=== PATIENT | female | born 1965 | race Caucasian/White ===

== ENCOUNTER 2016-08-29 08:00 | Inpatient (IN) | payer BC ==
[~2016-08-29] VITALS: Ht 157.5 cm; Wt 83.2 kg
[2016-09-18] MEDS ORDERED: MORP1TAB25 PO (13:31)
[2016-09-18] MEDS ORDERED: FISH1000 PO (13:31)
[2016-09-18] MEDS ORDERED: ASPI325T PO (13:31)
[2016-09-18] MEDS ORDERED: ATOR1TAB18 PO (13:31)
[2016-09-18] MEDS ORDERED: MULTTAB67 PO (13:31)
[2016-09-18] MEDS ORDERED: LISI-519 PO (13:31)
[2016-09-18] MEDS ORDERED: GABA600T PO (13:31)
[2016-09-18] MEDS ORDERED: CYMB60CA PO (13:31)
[2016-09-18] MEDS ORDERED: TRAM50TA PO (13:48)
[2016-09-18] MEDS ORDERED: OXYC-259 PO (13:48)
[2016-09-18] MEDS ORDERED: OXYC-395 PO (13:48)
[2016-09-24] MEDS ORDERED: METOPROLOL TARTRATE 25 MG TAB PO PRN (07:00)
[2016-09-24] MEDS: SODIUM CHLOR 0.9% 1000 ML INJ 1,000 ML IV SCH (07:00)
[2016-09-24] MEDS: SODIUM CHLORID 0.9% 500 ML IV SCH ×2 (07:00→23:40)
[2016-09-24] MEDS ORDERED: INSULIN HUMAN REGULAR 1,000 UNITS/10 ML VIAL SQ PRN (07:00)
[2016-09-24] MEDS ORDERED: VANCOMYCIN HCL 1000 MG ON-CALL/NS 250 ML IV SCH ×2 (07:00)
[2016-09-24] MEDS: LACTATED RINGER'S 1000 ML IV SCH ×2 (07:30→22:31)
[2016-09-24 07:38] VITALS: BP 118/71; PULSE 89; RESP 18; TEMP 98.7; O2SAT 95
[2016-09-24] MEDS ORDERED: THROMBIN (TOPICAL) 5,000 UNIT VIAL ONE (07:39)
[2016-09-24] MEDS ORDERED: GELFOAM SIZE 100 ONE (07:40)
[2016-09-24] MEDS ORDERED: HYDROmorphone HCL PF 2 MG/ML VIAL ONE (08:01)
[2016-09-24] MEDS ORDERED: DICLOFENAC SODIUM 37.5 MG/ML VIAL IV PUSH ONE (08:01)
[2016-09-24] MEDS ORDERED: ACETAMINOPHEN 1000 MG/100 ML VIAL IV ONE (08:01)
[2016-09-24] MEDS ORDERED: SUGAMMADEX SODIUM 200 MG/2 ML VIAL IV PUSH ONE ×2 (08:02)
[2016-09-24] MEDS ORDERED: FAMOTIDINE 20 MG/2 ML VIAL ONE (08:18)
--- NOTE | 2016-09-24 08:30 | MH ---
cc: ARTURO ALBERTO MD, ROHIT K. M.D. DR. BENEZETTE DATE OF ADMISSION 09/24/2016 ADMISSION DIAGNOSIS L5-S1 spondylolisthesis and severe degenerative disk disease. HISTORY OF PRESENT ILLNESS This is a 51-year-old female who underwent a right L5 / S1 transforaminal interbody fusion with cage and pedicle screw placement on 09/14/2014. She presented for her follow-ups and complained of low back pain radiating into both of her hips. She denies any pain radiating into her legs. She states her knees hurt and has arthritis in them. She has neuropathy from her knees down to her toes. She states that after her fusion she is not taking any nonsteroidal anti-inflammatory medications and she stated that she has stopped smoking several years ago up. Lumbar x-rays from April 22, 2016 reveals the right L5 pedicle screw lateral to the vertebral body with a grade 2 L5-S1 spondylolisthesis and slight L4-L5 spondylolisthesis also. PAST MEDICAL HISTORY Significant for: 1. Hypertension. 2. Coronary artery disease status post stent placement in November 2003. 3. Cholecystectomy October 2003. 4. Peripheral neuropathy. MEDICATIONS current medications: 1. She is taking aspirin 325 milligrams daily. This was placed on hold one week prior to surgical intervention. 2. Lisinopril 2.5 mg daily. 3. Gabapentin 1200 milligrams three times a day. 4. Duloxetine 60 mg b.i.d. 5. Atorvastatin 80 milligrams daily. 6. OxyContin 10 mg q.6 h. 7. Morphine 30 mg three times a day. 8. Tramadol 50 mg one to two tablets q.6h p.r.n. breakthrough pain. 9. Fish oil three times a day. This was placed on hold one week prior to surgical intervention. 10. Multivitamin daily. ALLERGIES TO MEDICATIONS SHE IS ALLERGIC TO IBUPROFEN AND STEROIDS. FAMILY HISTORY Her mother is at 73 years old, had cancer. Father is at 68 years old, had cancer. Brother is alive at 55 years old and well. She has another brother who is at 37 years old of myocardial infarction. SOCIAL HISTORY She is . She has children. She does not smoke and quit smoking and 2005. She does not drink alcohol. REVIEW OF SYSTEMS CONSTITUTIONAL: She denies any fever or chills. EARS, NOSE, AND THROAT: No pharyngitis or exudate or bloody drainage from her nose. CARDIOVASCULAR: She denies any chest pain, palpitations. RESPIRATORY: No cough or shortness of breath. GENITOURINARY: No dysuria or hematuria. MUSCULOSKELETAL: Positive for low back pain. SKIN: No rashes or pruritus. NEUROLOGICAL: No difficulty with speech or memory. GASTROINTESTINAL: No nausea or vomiting, abdominal pain. PSYCHIATRIC: Positive for anxiety. No depression symptoms. ENDOCRINE: No polyuria or polydipsia. HEMATOLOGIC: No bruising or bleeding tendencies. PHYSICAL EXAMINATION HEAD: Normocephalic, atraumatic. NECK: Supple. No carotid bruits heard on auscultation. LUNGS: Clear to auscultation bilaterally. HEART: Regular rate and rhythm. Normal S1-S2. ABDOMEN: Soft and nontender. Positive bowel sounds. She is obese. SKIN: No cyanosis or erythema. She has a well healed lumbar incision. MUSCULOSKELETAL: She has giveaway strength distally, otherwise she is 5/5 in the lower extremities. NEUROLOGICAL: She is awake, alert and oriented. Cranial nerves II through XII are grossly intact. Speech is fluent. Comprehension is good. Sensation is decreased in the feet and below her knees. Otherwise they are intact in the lower extremities. IMPRESSION A 50-year-old female with a high grade L5-S1 spondylolisthesis with severe degenerative disk disease and foraminal stenosis and intractable back pain and radiculopathy who underwent an L5-S1 transforaminal interbody fusion with pedicle screw fixation on September 2014. She also suffers from bilateral peripheral neuropathy. She has postoperative flexion/extension x-rays which do not reveal any instability, although more recent x-rays of the right L5 pedicle screw has pulled out of the vertebral body and is slightly lateral to the body with the S1 screw in place. There does appear to be increased progression of the spondylolisthesis, although the interbody cage is in position. PLAN We have recommended removal and reposition of the right L5 pedicle screw as well as placement of a left L5-S1 pedicle screws with a posterior lateral fusion to prevent further subluxation and provide more solid fusion. The patient has elected to hold off on surgery from our recommendation on May 24, 2016. She understands the risk of nerve injury, vascular injury as well as intra-abdominal, retroperitoneal content injury that could have occurred with further migration of the screw. We have discussed the procedure as well as the risks, benefits, alternatives and recovery time of the surgery involved with the patient who understands. No guarantees were made as to the results of the surgery. She understands this. The patient is electing to proceed and she was therefore scheduled accordingly. DICTATED BY: Mike Scott PA-C MD EDGARDO Rodriguez/JEANIE /3:55 PM /8:29 AM [facility]
[2016-09-24] MEDS: BUPIVACAINE/EPINEPHRINE 0.5% PF 30 ML VIAL ONE ×2 (09:32→11:23)
[2016-09-24] MEDS: VANCOMYCIN HCL 1000 MG VIAL ONE ×2 (10:05→11:26)
[2016-09-24] MEDS ORDERED: BUPIVACAINE/EPINEPHRINE 0.5% PF 30 ML VIAL ONE (11:22)
[2016-09-24] MEDS ORDERED: ONDANSETRON HCL 4 MG/2 ML VIAL IV PUSH ONE (12:00)
[2016-09-24] MEDS ORDERED: NEOSTIGMINE 3 MG/3 ML SYR IV ONE (12:00)
[2016-09-24] MEDS ORDERED: NORMOSOL R INJ 1,000 ML IV ONE (12:00)
[2016-09-24] MEDS ORDERED: PROPOFOL 200 MG/20 ML AMP IV ONE (12:00)
[2016-09-24] MEDS ORDERED: PHENYLEPH/NS 1000 MCG/10 ML SYR IV ONE (12:00)
[2016-09-24] MEDS ORDERED: POTASSIUM CHLOR 20 MEQ PREMIX 100 ML IV PRN (12:15)
[2016-09-24] MEDS ORDERED: cloNIDine HCL 0.1 MG TAB PO PRN (12:15)
[2016-09-24] MEDS ORDERED: MENTHOL LOZENGE SUCK-ON PRN (12:15)
[2016-09-24] MEDS ORDERED: oxyCODONE/ACETAMINOPHEN 10 MG/325 MG TAB PO PRN (12:15)
[2016-09-24] MEDS ORDERED: ONDANSETRON HCL 4 MG/2 ML VIAL IV PRN (12:15)
[2016-09-24] MEDS ORDERED: CALCIUM GLUCONATE INJ 1 GM in SODIUM CHLORIDE 0.9% INJ 100 ML IV PRN (12:15)
[2016-09-24] MEDS ORDERED: MAGNESIUM SULFATE INJ 2 GM in SODIUM CHLORIDE 0.9% INJ 100 ML IV PRN (12:15)
[2016-09-24] MEDS ORDERED: RESP: ALBUTEROL 2.5 MG/3 ML NEB (PRN) NEB (12:15)
[2016-09-24] MEDS ORDERED: ZOLPIDEM TARTRATE 5 MG TAB PO PRN (12:15)
[2016-09-24] MEDS ORDERED: MAGNESIUM HYDROXIDE SUSP 30 ML CUP PO PRN (12:15)
[2016-09-24] MEDS ORDERED: NALOXONE HCL 0.4 MG/ML AMP IV PRN (12:15)
[2016-09-24] MEDS ORDERED: BISACODYL 10 MG SUPP PR PRN (12:15)
[2016-09-24] MEDS ORDERED: diphenhydrAMINE HCL 25 MG CAP PO PRN (12:15)
[2016-09-24] MEDS ORDERED: ACETAMINOPHEN 325 MG TAB PO PRN (12:15)
[2016-09-24] MEDS ORDERED: ALUMINUM/MAGNESIUM/SIMETH 30 ML CUP PO PRN (12:15)
[2016-09-24] MEDS ORDERED: PROMETHAZINE INJ 25 MG/ML VIAL IM PRN (12:15)
[2016-09-24] MEDS ORDERED: SODIUM CHLORIDE 0.9% FLUSH 5 ML FLUSH IVF PRN (12:15)
--- NOTE | 2016-09-24 12:18 | PD.OP ---
Operative Report Date of Surgery: Sep 24, 2016 Preoperative Diagnosis: Severe L5-S1 degenerative disc disease with a grade 2 spondylolisthesis; L5-S1 pseudoarthrosis with instrumentation failure Postoperative Diagnosis: Same Procedure: L5-S1 posterolateral fusion with pedicle screw fixation; L5-S1 right foraminotomy with epidurolysis; exploration of the L5-S1 fusion with removal and replacement of right L5 pedicle screw; microsurgical technique Anesthesia: Gen. endotracheal by sarah Ordoñez M.D. Surgeon: Richard Garza M.D. After School Driver(s): Eden Pandya Operation and Findings: Following initiation of general endotracheal anesthesia, the patient had a Pierson catheter placed along with sequential compression devices. A gram of vancomycin was administered intravenously and she was turned in a prone position on a Rodriguez frame, on a Hossein table, and all pressure points adequately padded. The lumbosacral region was then prepped with Chloraprep and sterilely draped with Ioban along the usual sterile draping. A right paraspinal skin incision was then made at the previous L5-S1 incision site after infiltrating the skin with 0.5% Marcaine with epinephrine solution extending down through the fascia. The muscle fibers were split using avascular fatty plane and detached from the underlying facets, transverse process and lateral portion of lamina on the right side in the previous L5 and S1 pedicle screws were evident along with a connecting woo and a self-retaining retractor used for exposure. Intraoperative fluoroscopy was also used for level of confirmation along with microscope magnification for further dissection. The woo and the L5 pedicle screw also removed which had migrated laterally but the S1 pedicle screw was in solid position and intact. A new more medial transpedicular L5 trajectory was undertaken using AP and lateral fluoroscopy and the screw placed and connected to the S1 screw with a woo and locked in place. Right L5-S1 foraminotomy with epidural scar tissue lysis was also undertaken to decompress the nerve root completely. Although no gross instability was noted that there was increased the spondylolisthesis at the L5- S1 level and given the concern of a pseudoarthrosis I felt the best that a posterolateral bilateral fusion also be undertaken in addition the previous interbody fusion. Through the same incision the fascia overlying the right iliac crest was detached along with muscular attachments and cortical bone also resected with the Leksell and with the gouges cancellus bone harvested from the iliac crest. There was an irrigated and Gelfoam with thrombin used for hemostasis. The fascia was then approximated with 2-0 Vicryl sutures overlying the crest. Subsequently I made the left L5 and S1 paraspinal skin incision extending onto the fascia and the muscle fibers split the exposure of the junction of the L5 transverse process and facet as well as the sacral ala through a small incision. Pedicle screws are placed with AP and lateral fluoroscopy guidance and the screws locked in place with a woo and cap. The construct appeared very very secure at this point. The transverse processes bilaterally were decorticated and I packed the autograft bone along with the demineralized bone matrix for posterolateral fusion. Subsequently in order to facilitate the fusion and provide stabilization, pedicle screw fixation was undertaken using Willard spine screws on entry point at the right L4-5 levels at the junction of the transverse process and facet. The area was then copiously irrigated with Vancomycin solution and powder. The retractors were removed and the bipolar cautery used for hemostasis. The muscle fascia was then approximated using 2-0 Vicryl interrupted stitches and then 3-0 Vicryl subcuticular stitches also placed in interrupted fashion. The final skin closure was completed with Mastisol and Steri-Strips as both a paraspinal incision sites. Sterile dressings were then applied. The patient then turned in supine position, extubated and taken to recovery room. There were no intraoperative complications. All sponge and needle counts were correct at the end of procedure. Estimated blood loss about 30 ml. Richard Garza MD Sep 24, 2016 12:17
[2016-09-24] MEDS ORDERED: fentaNYL CITRATE 250 MCG/5 ML AMP ONE (12:28)
[2016-09-24] MEDS ORDERED: MIDAZOLAM HCL 2 MG/2 ML VIAL ONE (12:28)
[2016-09-24] MEDS ORDERED: NS + KCL 20 MEQ INJ 1,000 ML ONE (12:31)
[2016-09-24] MEDS: HYDROmorphone HCL PCA 6 MG/30 ML IV SCH ×2 (12:47→20:29)
[2016-09-24] MEDS: NS + KCL 20 MEQ INJ 1,000 ML IV SCH ×2 (12:50→22:30)
[2016-09-24] MEDS: GABAPENTIN 300 MG CAP PO SCH ×2 (13:00→17:55)
[2016-09-24] MEDS ORDERED: DO NOT ADM ANY ANTICOAGULANT DRUGS XX PRN (13:00)
[2016-09-24 13:02] LABS: AUTOMATED NEUTROPHIL # 7.8 TH/MM3 (1.8-7.7); BASOPHIL % 0.4 % (0.0-2.0); EOSINOPHIL # 0.3 TH/MM3 (0-0.4); HEMATOCRIT 35.9 % (35.0-46.0); HEMO FLAGS DIFF FINAL; LYMPH % 36.4 % (9.0-44.0); LYMPHOCYTE # 5.1 TH/MM3 (1.0-4.8); MEAN CELL VOLUME 86.9 FL (80.0-100.0); MEAN CORPUSCULAR HEMOGLOBIN 28.9 PG (27.0-34.0); MEAN CORPUSCULAR HGB CONC 33.2 % (32.0-36.0); MONO % 5.9 % (0.0-8.0); NEUT % 55.3 % (16.0-70.0); PLATELET COUNT 293 TH/MM3 (150-450); RED BLOOD COUNT 4.13 MIL/MM3 (4.00-5.30); RED CELL DISTRIBUTION WIDTH 13.9 % (11.6-17.2); WHITE BLOOD COUNT 14.1 TH/MM3 (4.0-11.0)
[2016-09-24 13:37] LABS: BICARBONATE 30.1 MEQ/L (21.0-32.0)
[2016-09-24 13:41] LABS: POTASSIUM 2.8 MEQ/L (3.5-5.1)
[2016-09-24] MEDS: MORPHINE SULFATE 30 MG CONTROLLED RELEASE TAB PO SCH ×2 (14:00→22:26)
[2016-09-24] MEDS: CYCLOBENZAPRINE HCL 10 MG TAB PO SCH ×2 (14:00→22:26)
--- NOTE | 2016-09-24 14:57 | RADRPT ---
EXAM DATE/TIME: 09/24/2016 08:47 [facility] COMPARISON: SPINE LUMBAR LTD (AP & LAT), September 13, 2014, 8:57. INDICATIONS : Revision of L5,S1 fusion. MEDICAL HISTORY : Back pain SURGICAL HISTORY : Fusion, lumbar. ENCOUNTER: Initial ACUITY: 1 day PAIN SCORE: Non-responsive. LOCATION: Lumbar spine. FINDINGS: AP and lateral coned-down views of the lower lumbar spine were obtained using a matrix camera intraop eratively and demonstrate that the patient is status post fusion at the L5-S1 level with bilateral pe dicle screws and posterior fixation rods. 2 metallic markers are noted in the interspace. There has b een an interval increase in the anterior spondylolisthesis which now measures approximately 1 cm. On the prior study this measured approximately several millimeters. There has been an interval increase in the disc space narrowing at this level. There is mild sclerosis. CONCLUSION: 1. Status post revision fusion at the L5-S1 level. 2. Interval increase in anterior spondylolisthesis. 3. Increased degenerative disc change with disc space narrowing. Dustin Maldonado MD on September 24, 2016 at 14:53 Board Certified Radiologist. This report was verified electronically.
[2016-09-24] MEDS ORDERED: POTASSIUM CHLORIDE 10 MEQ CONTROLLED RELEASE TAB PO ONE (15:00)
[2016-09-24 20:46] VITALS: BP 108/64; PULSE 86; RESP 20; TEMP 99.6; O2SAT 96
[2016-09-24] MEDS: SODIUM CHLORIDE 0.9% FLUSH 5 ML FLUSH IVF SCH (22:25)
[2016-09-24] MEDS: DOCUSATE SODIUM 100 MG CAP PO SCH (22:25)
[2016-09-24] MEDS: PCA - TOTAL MG DILAUDID DELIVERED PER SHIFT OTHER SCH (22:32)
[2016-09-24] MEDS: ATORVASTATIN 80 MG TAB PO SCH (23:01)
[2016-09-25] VITALS (9 sets, daily range): BP systolic 90–120; BP diastolic 51–62; PULSE 65–110; RESP 17–20; TEMP 95.7–101.1; O2SAT 88–100
[2016-09-25] MEDS: MORPHINE SULFATE 30 MG CONTROLLED RELEASE TAB PO SCH (05:20)
[2016-09-25] MEDS: CYCLOBENZAPRINE HCL 10 MG TAB PO SCH (05:20)
[2016-09-25] MEDS: PCA - TOTAL MG DILAUDID DELIVERED PER SHIFT OTHER SCH ×3 (05:21→22:00)
[2016-09-25] MEDS: SODIUM CHLOR 0.9% 1000 ML INJ 1,000 ML IV SCH (07:00)
[2016-09-25] MEDS: NS + KCL 20 MEQ INJ 1,000 ML IV SCH (08:11)
[2016-09-25 08:46] LABS: BICARBONATE 29.8 MEQ/L (21.0-32.0); POTASSIUM 3.4 MEQ/L (3.5-5.1)
[2016-09-25] MEDS: SODIUM CHLORIDE 0.9% FLUSH 5 ML FLUSH IVF SCH (09:00)
[2016-09-25] MEDS: LISINOPRIL 5 MG TAB PO SCH (09:25)
[2016-09-25] MEDS: ASPIRIN 325 MG TAB PO SCH (09:25)
[2016-09-25] MEDS: DOCUSATE SODIUM 100 MG CAP PO SCH (09:25)
[2016-09-25] MEDS: GABAPENTIN 300 MG CAP PO SCH ×3 (09:25→17:57)
[2016-09-25] MEDS: MULTIVITAMIN TAB PO SCH (09:26)
[2016-09-25] MEDS: PANTOPRAZOLE SOD 40 MG DELAYED RELEASE TAB PO SCH (09:26)
[2016-09-25] MEDS: DULoxetine HCl DR 60 MG CAP PO SCH (09:26)
--- NOTE | 2016-09-25 10:04 | HHI.NSPN ---
(Mike Scott) History Chief Complaint: Incisional pain. (Mike Scott) Interval History 09/25/16: Pt underwent a L5/S1 posterolateral fusion with pedicle screw fixation ; L5/S1 right foraminotomy with epidural scar tissue lysis,exploration of the L5 /S1 fusion with removal and placement of right L5 pedicle screw on 09/24/16. She complains of incisional back pain. She states the pain radiating into her LEs is improved. She is ambulating to the bathroom. (Mike Scott) Review of Systems General: Negative for: fever, chills, insomnia Respiratory: Negative for: shortness of breath, cough, sputum Cardiovascular: Negative for: chest pain Gastrointestinal: Negative for: nausea, vomitting, diarrhea, constipation ( Mike Scott) Exam Results Vital Signs Date Time Temp Pulse Resp B/P Pulse Ox O2 Delivery O2 Flow Rate FiO2 09/25/16 08:00 99.7 100 18 90/51 90 09/24/16 19:30 Nasal Cannula 2 Intake and Output 09/24/16 09/24/16 09/25/16 08:00 16:00 00:00 Intake Total 1100 ml 50 ml Output Total 430 ml 700 ml Balance 670 ml -650 ml (Mike Scott) Physical Examination Resp: CTA bilaterally Heart: NSR no murmurs Abd: Soft positive bs Skin: Bandage changed by RN this morning Muscle: Moves LEs with good strength. Ambulates to bathroom with brace. Neuro: Pt awake and alert. Follows commands well. Speech clear. (Mike Scott) Lab, Micro, Other Results Laboratory Tests Test 09/24/16 09/25/16 12:44 07:32 White Blood Count 14.1 TH/MM3 Red Blood Count 4.13 MIL/MM3 Hemoglobin 11.9 GM/DL Hematocrit 35.9 % Mean Corpuscular Volume 86.9 FL Mean Corpuscular Hemoglobin 28.9 PG Mean Corpuscular Hemoglobin 33.2 % Concent Red Cell Distribution Width 13.9 % Platelet Count 293 TH/MM3 Mean Platelet Volume 8.4 FL Neutrophils (%) (Auto) 55.3 % Lymphocytes (%) (Auto) 36.4 % Monocytes (%) (Auto) 5.9 % Eosinophils (%) (Auto) 2.0 % Basophils (%) (Auto) 0.4 % Neutrophils # (Auto) 7.8 TH/MM3 Lymphocytes # (Auto) 5.1 TH/MM3 Monocytes # (Auto) 0.8 TH/MM3 Eosinophils # (Auto) 0.3 TH/MM3 Basophils # (Auto) 0.0 TH/MM3 CBC Comment DIFF FINAL Differential Comment Sodium Level 138 MEQ/L 139 MEQ/L Potassium Level 2.8 MEQ/L 3.4 MEQ/L Chloride Level 102 MEQ/L 103 MEQ/L Carbon Dioxide Level 30.1 MEQ/L 29.8 MEQ/L Anion Gap 6 MEQ/L 6 MEQ/L Blood Urea Nitrogen 4 MG/DL 2 MG/DL Creatinine 0.64 MG/DL 0.61 MG/DL Estimat Glomerular Filtration 98 ML/MIN 104 ML/MIN Rate Random Glucose 130 MG/DL 106 MG/DL Calcium Level 8.2 MG/DL 7.8 MG/DL 09/24/16 09/24/16 09/25/16 15:00 23:00 07:00 Intake Total 1000 ml 150 ml 840 ml Output Total 430 ml 700 ml 500 ml Balance 570 ml -550 ml 340 ml Intake Oral 150 ml 840 ml Other 1000 ml Output Urine Total 200 ml 700 ml 500 ml Estimated Blood Loss 30 ml Other 200 ml # Bowel Movements 0 0 (Mike Scott) Medical Decision Making Impression and Plan A: 51 y/o FM s/p L5/S1 posterolateral fusion with pedicle screw fixation; L5/ S1 right foraminotomy with epidural lysis, exploration of the L5/S1 fusion with removal and placement of right pedicle screw. P: Continue with pain control. Continue with PT Continue to monitor. (Mike Scott) Attending Statement The exam, history, and the medical decision-making described in the above note were completed with the assistance of the mid-level provider. I reviewed and agree with the findings presented. I attest that I had a [id number] encounter with the patient on the same day, and personally performed and documented my assessment and findings in the medical record. Appears to be sedated but arouses easily. We will decrease pain medications and muscle relaxers and adjust medications dependent on her pain level. (Richard Garza MD) Mike Scott Sep 25, 2016 10:04 Richard Garza MD Sep 25, 2016 19:00
[2016-09-25] MEDS ORDERED: POTASSIUM CHLORIDE 10 MEQ CONTROLLED RELEASE TAB PO ONE (11:15)
[2016-09-25] MEDS ORDERED: CYCLOBENZAPRINE HCL 10 MG TAB PO PRN (12:00)
[2016-09-25] MEDS: HYDROmorphone HCL PCA 6 MG/30 ML IV SCH (16:25)
[2016-09-26] VITALS (7 sets, daily range): BP systolic 103–114; BP diastolic 52–69; PULSE 62–101; RESP 16–21; TEMP 96.7–100.1; O2SAT 90–99
[2016-09-26] MEDS: NS + KCL 20 MEQ INJ 1,000 ML IV SCH ×2 (00:27→04:11)
[2016-09-26] MEDS: SODIUM CHLORIDE 0.9% FLUSH 5 ML FLUSH IVF SCH ×4 (00:27→22:10)
[2016-09-26] MEDS: DOCUSATE SODIUM 100 MG CAP PO SCH ×3 (00:28→22:07)
[2016-09-26] MEDS: ATORVASTATIN 80 MG TAB PO SCH ×2 (00:29→22:07)
[2016-09-26] MEDS: POTASSIUM CHLORIDE 10 MEQ CONTROLLED RELEASE TAB PO SCH ×2 (00:29→08:27)
[2016-09-26] MEDS: MORPHINE SULFATE 30 MG CONTROLLED RELEASE TAB PO SCH ×3 (00:31→22:08)
[2016-09-26] MEDS: HYDROmorphone HCL PCA 6 MG/30 ML IV SCH (00:49)
[2016-09-26] MEDS: LACTATED RINGER'S 1000 ML IV SCH (05:42)
[2016-09-26] MEDS: SODIUM CHLOR 0.9% 1000 ML INJ 1,000 ML IV SCH (05:42)
[2016-09-26] MEDS: PCA - TOTAL MG DILAUDID DELIVERED PER SHIFT OTHER SCH ×3 (06:00→22:00)
[2016-09-26] MEDS: ASPIRIN 325 MG TAB PO SCH (08:26)
[2016-09-26] MEDS: LISINOPRIL 5 MG TAB PO SCH (08:26)
[2016-09-26] MEDS: DULoxetine HCl DR 60 MG CAP PO SCH (08:26)
[2016-09-26] MEDS: MULTIVITAMIN TAB PO SCH (08:26)
[2016-09-26] MEDS: PANTOPRAZOLE SOD 40 MG DELAYED RELEASE TAB PO SCH (08:27)
[2016-09-26] MEDS: GABAPENTIN 300 MG CAP PO SCH ×3 (08:27→17:01)
[2016-09-26] MEDS ORDERED: HYDROmorphone HCL PF 1 MG/ML VIAL IV PUSH PRN (09:30)
--- NOTE | 2016-09-26 10:09 | HHI.NSPN ---
(Mike Scott) History Chief Complaint: Incisional pain. (Mike Scott) Interval History 09/25/16: Pt underwent a L5/S1 posterolateral fusion with pedicle screw fixation ; L5/S1 right foraminotomy with epidural scar tissue lysis,exploration of the L5 /S1 fusion with removal and placement of right L5 pedicle screw on 09/24/16. She complains of incisional back pain. She states the pain radiating into her LEs is improved. She is ambulating to the bathroom. 09/26/16: Pt awake a little confused. Complains of incisional pain. No radiculopathy in LEs. (Mike Scott) Review of Systems General: Negative for: fever, chills, insomnia Respiratory: Negative for: shortness of breath, cough, sputum Cardiovascular: Negative for: chest pain Gastrointestinal: Negative for: nausea, vomitting, diarrhea, constipation ( Mike Scott) Exam Results Vital Signs Date Time Temp Pulse Resp B/P Pulse Ox O2 Delivery O2 Flow Rate FiO2 09/26/16 10:00 94 Nasal Cannula 2.00 09/26/16 08:00 100.1 99 16 114/69 09/25/16 19:57 21 Intake and Output 09/25/16 09/25/16 09/26/16 08:00 16:00 00:00 Intake Total 840 ml 800 ml 600 ml Output Total 500 ml Balance 340 ml 800 ml 600 ml (Mike Scott) Physical Examination Resp: CTA bilaterally Heart: NSR no murmurs Abd: Soft positive bs Skin: Incision clean and dry. No signs of infection. Muscle: Moves LEs with good strength. Neuro: Pt awake and alert. Follows commands well. Speech clear. (Mike Scott) Lab, Micro, Other Results 09/25/16 09/25/16 09/26/16 15:00 23:00 07:00 Intake Total 800 ml 600 ml 951 ml Output Total 164 ml Balance 800 ml 600 ml 787 ml Intake Oral 800 ml 600 ml 480 ml IV Total 471 ml Output Urine Total 164 ml # Voids 4 5 1 # Bowel Movements 1 0 (Mike Scott) Medical Decision Making Impression and Plan A: 51 y/o FM s/p L5/S1 posterolateral fusion with pedicle screw fixation; L5/ S1 right foraminotomy with epidural lysis, exploration of the L5/S1 fusion with removal and placement of right pedicle screw. P: Continue with pain control. Continue with PT Continue to monitor. (Mike Scott) Attending Statement The exam, history, and the medical decision-making described in the above note were completed with the assistance of the mid-level provider. I reviewed and agree with the findings presented. I attest that I had a [id number] encounter with the patient on the same day, and personally performed and documented my assessment and findings in the medical record. (Richard Garza MD) Mike Scott Sep 26, 2016 10:09 Richard Garza MD Sep 26, 2016 18:02
[2016-09-26] MEDS: oxyCODONE/ACETAMINOPHEN 10 MG/325 MG TAB PO PRN ×2 (13:18→18:57)
[2016-09-27] VITALS: BP 108/56; PULSE 64; RESP 18; TEMP 96.8; O2SAT 96
[2016-09-27 04:00] VITALS: BP 110/66; PULSE 86; RESP 18; TEMP 97.4; O2SAT 93
[2016-09-27] MEDS: PCA - TOTAL MG DILAUDID DELIVERED PER SHIFT OTHER SCH (06:00)
[2016-09-27 08:00] VITALS: BP 108/64; PULSE 86; RESP 18; TEMP 97.1; O2SAT 93
[2016-09-27] MEDS: MULTIVITAMIN TAB PO SCH (08:30)
[2016-09-27] MEDS: MORPHINE SULFATE 30 MG CONTROLLED RELEASE TAB PO SCH (08:30)
[2016-09-27] MEDS: DOCUSATE SODIUM 100 MG CAP PO SCH (08:30)
[2016-09-27] MEDS: GABAPENTIN 300 MG CAP PO SCH (08:30)
[2016-09-27] MEDS: PANTOPRAZOLE SOD 40 MG DELAYED RELEASE TAB PO SCH (08:30)
[2016-09-27] MEDS: LISINOPRIL 5 MG TAB PO SCH (08:31)
[2016-09-27] MEDS: ASPIRIN 325 MG TAB PO SCH (08:31)
[2016-09-27] MEDS: DULoxetine HCl DR 60 MG CAP PO SCH (08:31)
[2016-09-27] MEDS ORDERED: OXYC-395 PO (08:43)
[2016-09-27] MEDS ORDERED: CYCL1TAB29 PO (08:43)
[2016-09-27] MEDS: oxyCODONE/ACETAMINOPHEN 10 MG/325 MG TAB PO PRN (08:44)
--- NOTE | 2016-09-27 11:31 | HHI.NSPN ---
History Chief Complaint: Incisional pain. Interval History 09/25/16: Pt underwent a L5/S1 posterolateral fusion with pedicle screw fixation ; L5/S1 right foraminotomy with epidural scar tissue lysis,exploration of the L5 /S1 fusion with removal and placement of right L5 pedicle screw on 09/24/16. She complains of incisional back pain. She states the pain radiating into her LEs is improved. She is ambulating to the bathroom. 09/26/16: Pt awake a little confused. Complains of incisional pain. No radiculopathy in LEs. 09/27/16: Pt awake and more alert today. States pain controlled with her pain medication. No radiculopathy in LEs. No paresthesias in LEs. Review of Systems General: Negative for: fever, chills, insomnia Respiratory: Negative for: shortness of breath, cough, sputum Cardiovascular: Negative for: chest pain Gastrointestinal: Negative for: nausea, vomitting, diarrhea, constipation Exam Results Vital Signs Date Time Temp Pulse Resp B/P Pulse Ox O2 Delivery O2 Flow Rate FiO2 09/27/16 08:00 97.1 86 18 108/64 93 09/26/16 10:00 Nasal Cannula 2.00 09/25/16 19:57 21 Intake and Output 09/26/16 09/26/16 09/27/16 08:00 16:00 00:00 Intake Total 951 ml 600 ml 860 ml Output Total 164 ml Balance 787 ml 600 ml 860 ml Physical Examination Resp: CTA bilaterally Heart: NSR no murmurs Abd: Soft positive bs Skin: Incision clean. Some serous drainage on bandage. New bandage placed. No erythema or pain to palpation. Muscle: Moves LEs with good strength. Neuro: Pt awake and alert. Follows commands well. Speech clear. Lab, Micro, Other Results 09/26/16 09/26/16 09/27/16 15:00 23:00 07:00 Intake Total 600 ml 860 ml 720 ml Balance 600 ml 860 ml 720 ml Intake Oral 600 ml 860 ml 720 ml IV Total 0 ml # Voids 3 6 3 # Bowel Movements 1 1 0 Medical Decision Making Impression and Plan A: 51 y/o FM s/p L5/S1 posterolateral fusion with pedicle screw fixation; L5/ S1 right foraminotomy with epidural lysis, exploration of the L5/S1 fusion with removal and placement of right pedicle screw. P: Discharge pt home. Keep incision clean and dry. Follow restrictions. Mike Scott Sep 27, 2016 11:31
--- NOTE | 2016-09-27 11:34 | HHI.FF ---
Face to Face Verification Diagnosis: (1) Lumbar disc prolapse with compression radiculopathy (2) Lumbar degenerative disc disease (3) Facet degeneration of lumbosacral region (4) Lumbar foraminal stenosis (5) Spondylolisthesis at L5-S1 level (6) Pseudoarthrosis of lumbar spine Physical Therapy Order: Evaluate and Treat, Improve ambulation, Strength and gait training Home Health Nursing Order: Wound care and dressing changes Nursing assessment with vital signs I have seen patient Dianna Ramirez on 09/27/16. My clinical findings support the need for the requested home health care services because: Deconditioned w/ increased weakness High risk of falls I certify that my clinical findings support that this patient is homebound because: Unsteady gait/balance Unable to use public transportation Mike Scott Sep 27, 2016 11:34
[2016-09-27 12:00] VITALS: BP 119/58; PULSE 90; RESP 18; TEMP 96.9; O2SAT 96
[2016-09-27 12:50] VITALS: O2SAT 97
--- NOTE | 2016-11-29 15:12 | HHI.DS ---
Discharge Summary Admission Date Sep 24, 2016 at 06:16 Discharge Date: Sep 27, 2016 Admitting Diagnosis (1) Lumbar disc prolapse with compression radiculopathy Diagnosis: Principal ICD Code: M51.16 (2) Pseudoarthrosis of lumbar spine Diagnosis: Principal ICD Code: S32.009K (3) Lumbar degenerative disc disease Diagnosis: Principal ICD Code: M51.36 (4) Facet degeneration of lumbosacral region Diagnosis: Principal ICD Code: M47.817 (5) Lumbar foraminal stenosis Diagnosis: Principal ICD Code: M99.83 (6) Spondylolisthesis at L5-S1 level Diagnosis: Principal ICD Code: M43.17 (7) S/P lumbar spinal arthrodesis Diagnosis: Principal ICD Code: Z98.1 Procedures L5/S1 posterolateral fusion with pedicle screw fixation; L5/S1 right foraminotomy with epidurolysis; exploration of the L5/S1 fusion with removal and replacement of right L5 pedicle screw by Dr. Garza on 09/24/16. Brief History Pt has previously underwent a right L5/S1 transforaminal interbody fusion with cage and pedicle screw placement on 09/14/14. she presented for her follow-ups and complained of low back pain radiating into both of her hips. She denies any pain radiating into her legs. She states her knees hurt and has arthritis in them. She has neuropathy from her knees down to her toes. She states that after her fusion she is not taking any nonsteroidal anti-inflammatory medications and she stated that she has stopped smoking several years ago. Imaging Lumbar spine x-rays from April 22, 2016 reveals the right L5 pedicle screw lateral to the vertebral body with a grade 2 L5/S1 spondylolisthesis and slight L4/L5 spondylolisthesis also. Hospital Course Pt underwent the above noted procedure performed by Dr. Garza. She was admitted to the med/surg floor after surgery. PT was consulted. Her pain was controlled. Her catheter was removed. Her activity was increased. She was discharged home in stable condition. Pt Condition on Discharge: Stable Discharge Disposition: Disch w/ Home Health Serv Discharge Instructions DIET: Follow Instructions for: As Tolerated, No Restrictions ACTIVITIES You can perform: Shower Only-No Bath Activities to Avoid: Lifting/Bending, Prolonged Standing, Strenuous Activity, Bathing, Driving ADDITIONAL Activity Instructio: Lumbar brace on when sitting, standing, or walking. New Medications: Cyclobenzaprine (Flexeril) 10 Mg Tab 10 MG PO TID Muscle Spasm #90 Ref 0 TAB Continued Medications: Aspirin (Aspirin) 325 Mg Tab 325 MG PO DAILY #30 Ref 0 TAB Atorvastatin (Atorvastatin) 80 Mg Tab 80 MG PO HS Cholesterol Management #[address] Ref [address] (Cymbalta DR) 60 Mg Capdr 60 MG PO DAILY #30 Ref 0 CAP Gabapentin (Gabapentin) 600 Mg Tab 1200 MG PO TID #90 Ref 0 TAB Lisinopril (Lisinopril) 5 Mg Tab 5 MG PO DAILY Blood Pressure Management #30 Ref 0 TAB Morphine ER (Morphine ER) 30 Mg Tab 30 MG PO Q8H Pain Management Ref 0 TAB Multiple Vitamin (Multiple Vitamin) 1 Tab 1 TAB PO DAILY Nutritional Supplement Ref 0 TAB Lusk-3 Fatty Acids (Fish Oil) 1,000 Mg Cap 2000 MG PO DAILY Oxycodone (Oxycodone) 10 Mg Tab 10 MG PO Q6H PRN PAIN #60 Ref 0 TAB (This prescription has been renewed) Tramadol (Tramadol) 50 Mg Tab 50 MG PO Q4H PRN PAIN Ref 0 TAB Mike Scott Nov 29, 2016 15:12
[2017-01-15] MEDS ORDERED: CYCL1TAB29 PO (15:03)
== END 2016-09-27 13:45 | disposition home health service (06) | DRG 460 ==
LOC: HSDI 09-24 06:16 → N05A 09-24 19:42
PROVIDERS: ADMIT Neurological Surgery; ATTEND Neurological Surgery
PROC: 0SP004Z Removal of Internal Fixation Device from Lumbar Vertebral Joint, Open Approach (ICD-10-PCS; 2016-09-24)
PROC: 01NB0ZZ Release Lumbar Nerve, Open Approach (ICD-10-PCS; 2016-09-24)
PROC: 0SG30Z1 (ICD-10-PCS; principal; 2016-09-24 08:39)
DX: M43.17 Spondylolisthesis, lumbosacral region (principal); T84.226A Displacement of internal fixation device of vertebrae, initial encounter; M51.17 Intervertebral disc disorders with radiculopathy, lumbosacral region; I10 Essential (primary) hypertension; M96.0 Pseudarthrosis after fusion or arthrodesis; G62.9 Polyneuropathy, unspecified; I25.10 Atherosclerotic heart disease of native coronary artery without angina pectoris; Y83.1 Surgical operation with implant of artificial internal device as the cause of abnormal reaction of the patient, or of later complication, without mention of misadventure at the time of the procedure; Z95.5 Presence of coronary angioplasty implant and graft; Z87.891 Personal history of nicotine dependence; Z88.6 Allergy status to analgesic agent; Z88.8 Allergy status to other drugs, medicaments and biological substances
CPT/HCPCS: 72100; 76000; 80048; 85025; 86850; 86900; 86901; 94150; C1713; J0131; J0690; J1130; J1170; J2250; J2370; J2405; J2710; J3010; J3370; J3480; J7050; J7120; L0484

== ENCOUNTER → 2016-09-18 | Outpatient (CLI) | payer BC ==
[~2016-09-18] MED LIST: ASPI325T PO; ATOR1TAB18 PO; CLIN150 PO; CYCL1TAB29 PO; CYMB60CA PO; FISH1000 PO; GABA600T PO; LIPI80TA16 PO; LISI-357 PO; LISI-519 PO; MORP1TAB25 PO; MORP30 PO; MORP30SU PO; MULTTAB67 PO; NEUR600T PO; OXYC-259 PO; OXYC-395 PO; OXYC10 PO; OXYC10TA8 PO; TAB-TAB PO; TRAM50TA PO; ULTR50TA PO
--- NOTE | 2016-09-18 16:06 | EKG ---
Date Performed: 09/18/2016 Time Performed: 13:01:25 PTAGE: 51 years EKG: Sinus rhythm Cannot rule out septal myocardial infarction versus normal variant NO SIGNIFICANT CHANGE FROM PRIOR ELECTROCARDIOGRAM. PREVIOUS TRACING : 01/02/2016 16.09 DOCTOR: Edwin Christiansen Interpretating Date/Time 09/18/2016 16:04:48
== END ==
LOC: CPRE 12:29
PROVIDERS: ATTEND Neurological Surgery
DX: Z01.810 Encounter for preprocedural cardiovascular examination (principal)
CPT/HCPCS: 93005